=== PATIENT | male | born 1995 | race African-American/Black ===

== ENCOUNTER 2021-07-19 11:43 | Emergency (ER) | payer OTHER ==
[2021-07-19 12:26] VITALS: BP 121/80
--- NOTE | 2021-07-19 14:30 | ED Physician Documentation ---
PD HPI UPPER EXT INJURY - Stated complaint Stated Complaint: R HAND SWELLING - Chief complaint Chief Complaint: Ext Problem - History obtained from History obtained from: Patient - Additonal information Additional information: He slept wrong he thinks the night before last and had pain in his right wrist. Its better today but still present. There is no other injury. No fevers or chills. Review of Systems Constitutional: denies: Fever, Chills Respiratory: denies: Dyspnea, Cough GI: denies: Abdominal Pain, Nausea, Vomiting PD PAST MEDICAL HISTORY - Allergies Allergies/Adverse Reactions: Allergies Allergy/AdvReac Type Severity Reaction Status Date / Time No Known Drug Allergies Allergy Verified 07/19/21 12:22 PD ED PE NORMAL - Vitals Vital signs reviewed: Yes - General General: Alert and oriented X 3, No acute distress - Extremities Extremities: Other (Milt TTP dorsal R wrist with decent ROM. No warmth/redness. ) - Neuro Neuro: Alert and oriented X 3, Normal speech Results - Vitals Vitals: Vital Signs - 24 hr 07/19/21 12:17 Temperature 36.5 C Heart Rate 64 Respiratory 14 Rate Blood Pressure 121/80 O2 Saturation 100 Oxygen O2 Source Room air PD MEDICAL DECISION MAKING - ED course ED course: 26-year-old gentleman with improving left wrist sprain likely. He declined radiography here which seems reasonable since he is improving. I discussed with him that he if he declines radiography he could absolutely get receiving next week and less asymptomatic. Departure - Departure Disposition: Home, Self Care Clinical Impression: Right wrist sprain Condition: Good Record reviewed to determine appropriate education?: Yes Instructions: ED Sprain Wrist Comments: Tylenol and/or ibuprofen as needed for pain, recheck Saturday if not completely better, return for new or worsening symptoms. Forms: Activity restrictions
== END 2021-07-19 14:51 | disposition home or self-care (01) ==
LOC: ED 11:43
DX: S63.501A Unspecified sprain of right wrist, initial encounter (principal); X58.XXXA Exposure to other specified factors, initial encounter
CPT/HCPCS: 99282